=== PATIENT | female | born 1990 | race Caucasian/White ===

== ENCOUNTER 2018-10-17 13:07 | Outpatient (CLI) | payer MEDICAID ==
--- NOTE | 2018-10-17 13:45 | ULT ---
EXAM: OB ultrasound COMPARISON: None HISTORY: Intrauterine gestation. Evaluate growth. TECHNIQUE: Multiplanar grayscale and color Doppler transabdominal sonographic images are obtained. FINDINGS: There is a single intrauterine gestation in cephalic presentation. Cardiac Doppler demonstr ates heart tones with a heart rate of 130 beats per minute. The placenta is located in the fundus without evidence of placenta previa. There is a normal amount of amniotic fluid with an am niotic fluid index of 12.18 centimeters. The cervical length based on transabdominal imaging measures approximately 4 centimeters. biometry measurements: BPD 7.46 cm -- 30 weeks HC 27.02 cm -- 29 weeks 4 days AC 25.36 cm -- 29 weeks 4 days FL 5.41 cm -- 28 weeks 5 days The estimated gestational age by ultrasound is 29 weeks 4 days with an ASHLEY on12/29/2018. Gestational age by the last menstrual period is 31 weeks 2 days. The estimated weight by ultrasound is 1364 g (3 pounds). This represents 3 percentile for weight. A 4 chambered heart is visualized. The cerebellum, visualized portions of the spine, kidneys, a nd urinary bladder demonstrate a normal sonographic appearance. Three-vessel cord is not definitely visualized on this exam. The cord insertion is also not well deli neated. No anomalies are seen. IMPRESSION: 1. Single intrauterine gestation in cephalic presentation with heart tones documented. Estimat ed gestational age by ultrasound is 29 weeks 4 days. 2. Estimated weight is 1364 g per densities 3 pounds). 3. Amniotic fluid index is 12.18 centimeters.
== END 2018-10-17 13:08 | disposition home or self-care (01) ==
LOC: BICULT 13:07
PROVIDERS: ATTEND Obstetrics & Gynecology
DX: O09.893 Supervision of other high risk pregnancies, third trimester (principal); Z3A.29 29 weeks gestation of pregnancy
CPT/HCPCS: 76805

== ENCOUNTER 2018-11-11 12:23 | Day surgery (SDC) | payer MEDICAID, OTHER ==
[2018-11-11 12:37] VITALS: BMI 36.3
[2018-11-11 12:44] LABS: #Eosinphils 0.2 thou/uL (0.0-0.7); #Lymphocytes 1.9 thou/uL (1.20-3.40); #Monocytes 0.9 thou/uL (0.11-0.59); #Neutrophils 10.4 thou/uL (1.40-6.50); %Basophils 0.3 % (0.0-1.0); %Eosinophils 1.4 % (0.0-10.0); %Lymphocytes 14.4 % (21.0-51.0); %Monocytes 6.9 % (0.0-10.0); %Neutrophils 77.1 % (42.0-75.0); Hemoglobin 11.4 g/dL (12.0-16.0); Mean Corpuscular HGB CONC 34.1 g/dL (32.0-36.0); Mean Corpuscular Volume 76.3 fL (78.0-98.0); Mean Platelet Volume 9.1 fL (7.4-10.4); Platelet Count 238 thou/uL (130-400); RBC Distribution Width 16.2 % (11.5-14.5); Red Blood Cell (RBC) Count 4.39 mill/uL (4.20-5.40); White Blood Cell (WBC) Count 13.5 thou/uL (4.8-10.8)
[2018-11-11 12:56] VITALS: TEMP 99.2
[2018-11-11 13:03] LABS: ALT (SGPT) 7 U/L (8-55); AST (SGOT) 11 U/L (5-34); Albumin 3.2 g/dL (3.5-5.0); Alkaline Phosphatase 120 U/L (40-150); Anion Gap 10 mmol/L (10-20); BUN (Urea Nitrogen) 6 mg/dL (7.0-18.7); Bilirubin, Total 0.2 mg/dL (0.2-1.2); Calc. Creatinine Clearance 219 mL/min (70-130); Calcium 8.9 mg/dL (7.8-10.44); Carbon Dioxide 23 mmol/L (22-29); Chloride 105 mmol/L (98-107); Estimated GFR-MDRD Greater than 90; Globulin 3.2 g/dL (2.4-3.5); Glucose 92 mg/dL (70-105); Potassium 4.1 mmol/L (3.5-5.1); Protein, Total 6.4 g/dL (6.0-8.3); Sodium 134 mmol/L (136-145)
[2018-11-11] MEDS ORDERED: hydrALAZINE 20 MG/ML VIAL SLOW IVP PRN (13:18)
[2018-11-11 13:57] LABS: Creatinine, Urine 23.16 mg/dL (47-110); Protein, Urine Random Quant Less than 10 mg/dL (1-14)
[2018-11-11 14:43] VITALS: BP 182/88
--- NOTE | 2018-11-11 17:16 | HP ---
TIME OF EVALUATION: Roughly 1620 hours until 1640 hours. This is a patient of Dr. Cami Diaz from the [facility]. REASON FOR EVALUATION: The patient was sent from [facility] for some "high blood pressure" and for monitoring. HISTORY OF PRESENT ILLNESS: In brief, this is a 28-year-old female, who is a multigravida, 4, para 3, with 2 prior C-sections. She is at 33 weeks and a day with a due date of December 29. She was seen this morning and was sent for blood pressure evaluation as her blood pressure "was high at [facility]." The patient arrived to Labor and Delivery while I was taking care of other patients needs, and I was finally free to see the patient at around 1620 hours. The patient has been seen at bedside. She denies visual changes or right upper quadrant pain. She did have an initial headache, but she stated that was because she has not eaten. Headache is now resolved. While the patient was being evaluated by Dr. Clemons (who was covering from 1:00 p.m. to 3:00 p.m.), the patient did receive hydralazine for an elevated blood pressure. This was per protocol and was given once. Blood pressures are now 140s over 70s to 80s. She denies hypertension in the last 2 pregnancies, although she did have hypertension with the first. She has a prior x2. REVIEW OF SYSTEMS: The patient states good movement and no fevers. Otherwise, review of systems was completed and is as per HPI. PAST MEDICAL HISTORY: Noncontributory. PAST SURGICAL HISTORY: She has had a x2, and her gallbladder was removed. MEDICATIONS: Include glyburide 5 mg, which just started recently for gestational diabetes. SOCIAL HISTORY: She does smoke and I advised her of the detrimental effects of smoking on . OB HISTORY: Significant for 2 prior C-sections. PHYSICAL EXAMINATION: VITAL SIGNS: Blood pressure right now is 140s over 70s, pulse is in the 80s to 90s. GENERAL: Clinically, she is in no acute distress. ABDOMEN: Soft and nontender. On perineal exam, there is no evidence of vaginal bleeding or rupture of membranes. Cervical exam was deferred as there is no evidence of labor and she is not here for a labor indication. LABORATORY ASSESSMENT: The patient had initial laboratories drawn, which showed a white blood cell count of 13.5, hematocrit of 33, liver function test of AST and ALT of 11 and 7 respectively, creatinine is 0.5. Urine protein is negative. Biophysical profile has been ordered, but that is currently pending at this time. I have also ordered a complete OB ultrasound to check for weight/growth. That is pending. ASSESSMENT: This is a patient, of Dr. Cami Diaz, prior x2 at 33 weeks and a day with what looks like mild -induced hypertension. She had elevated blood pressures x1 that responded to medications and it has not recurred. Her labs are normal. I will await the biophysical profile and a complete OB to make final disposition. PLAN: 1. Follow blood pressures as described. 2. The patient has been seen at bedside. 3. If there is no further severe blood pressures, based on her EGA, we will follow her twice a week as an outpatient. 4. No need for steroids at this time as her blood pressure severe reading was x1 and has not been recurrent. Job ID: [id number]
--- NOTE | 2018-11-11 17:30 | PDOC.EVN ---
Event Note - Event Note Event Note: BPP 10/13...rosangela 14 Ceph EFW 4 pounds S=D BPs mild range....OK for BP check on Wednesday with HP
--- NOTE | 2018-11-11 17:39 | ULT ---
EXAM: 1. OB ultrasound 2. Biophysical profile COMPARISON: None HISTORY: Hypertension in a female TECHNIQUE: Multiplanar grayscale and color Doppler images were obtained in a transabdominal ult rasound. FINDINGS: There is a single live intrauterine with heart rate of 130 bpm. Estimated weight is 1851 g. Average age of the fetus based off today's examination is 32 weeks 1 day. BPD 8.10 cm -- 32 weeks 4 days HC 29.65 cm -- 32 weeks 6 days AC 27.93 cm -- 32 weeks 0 days FL 5.98 cm -- 31 weeks 1 day The placenta is posterior in location without focal abnormality. ROSA is 14.0 cm which is normal. The cervix is normal in length. There is no evidence of placenta previa. Biophysical profile: 8 of 8 IMPRESSION: 1. Single live intrauterine with estimated age of 32 weeks 1 day. 2. Normal biophysical profile
== END 2018-11-11 17:45 | disposition home health service (06) ==
LOC: L&D/OP 12:23
PROVIDERS: ATTEND Obstetrics & Gynecology
DX: O99.89 Other specified diseases and conditions complicating pregnancy, childbirth and the puerperium (principal); R03.0 Elevated blood-pressure reading, without diagnosis of hypertension; O24.415 Gestational diabetes mellitus in pregnancy, controlled by oral hypoglycemic drugs; O99.333 Smoking (tobacco) complicating pregnancy, third trimester; F17.200 Nicotine dependence, unspecified, uncomplicated; Z3A.33 33 weeks gestation of pregnancy
CPT/HCPCS: 36415; 36416; 76815; 76819; 80053; 82570; 84156; 85025; 96360; 96361; 96375; 99283; J0360